=== PATIENT | female | born 1950 | race Caucasian/White ===

== ENCOUNTER → 2017-03-25 | Outpatient (CLI) | payer MEDICARE, OTHER ==
[~2017-03-25] MED LIST: AMOX500C PO; DRIS50002 PO; HYDR1OI TOP; IBUP200C10 PO
--- NOTE | 2017-03-25 09:21 | REPMRS ---
Patient History The patient states she had a clinical breast exam in 2016. Patient is postmenopausal. Family history of breast cancer in sister at age 67, endometrial cancer in mother at age 60, and breast cancer in maternal grandmother at age 75. Digital Mammo Screening Bilat: March 25, 2017 - Exam #: [id number] Bilateral CC and MLO view(s) were taken. Technologist: Ame Woods, Technologist Prior study comparison: March 05, 2016, bilateral digital mammo screening bilat performed at [facility]. March 05, 2015, bilateral digital mammo screening bilat performed at [facility]. FINDINGS: There are scattered fibroglandular densities. There has been no change in the appearance of the mammogram from the prior studies. There is a mild amount of residual fibroglandular tissue which is fairly symmetric. There is no interval development of dominant mass, architectural distortion, or clustered microcalcification suggestive of malignancy. ASSESSMENT: BI-RADS/ACR category 1 mammogram. Negative. Recommendation Routine screening mammogram in 1 year (for women over age 40). This mammogram was interpreted with the aid of an FDA-approved computer-aided dectection system. Electronically Signed By: Avery Garcia MD 03/25/17 [id number]
== END ==
LOC: M RAD 07:59
PROVIDERS: ATTEND Family Medicine
DX: Z12.31 Encounter for screening mammogram for malignant neoplasm of breast (principal)

== ENCOUNTER → 2018-03-28 | Outpatient (CLI) | payer MEDICARE, OTHER | LOC: M RAD 09:24 | DX: Z12.31 Encounter for screening mammogram for malignant neoplasm of breast (principal) | CPT/HCPCS: 77067 ==

== ENCOUNTER → 2018-03-30 | Outpatient (REF) | payer MEDICARE, OTHER ==
[2018-03-30 17:29] LABS: PLATELET COUNT, AUTOMATED 213 10^3/uL (150-450)
[2018-03-30 17:39] LABS: INR 0.95; PROTHROMBIN TIME 12.8 SECONDS (12.1-14.4)
[2018-03-30 17:40] LABS: PARTIAL THROMBOPLASTIN TIME 28.3 SECONDS (25.4-37.6)
== END ==
LOC: M LAB REF 16:43
DX: R91.1 Solitary pulmonary nodule (principal)
CPT/HCPCS: 85049

== ENCOUNTER → 2018-04-08 | Outpatient (CLI) | payer MEDICARE, OTHER | LOC: M RAD 13:24 | DX: R91.1 Solitary pulmonary nodule (principal) | CPT/HCPCS: 71250 ==

== ENCOUNTER 2018-04-19 05:56 | Day surgery (SDC) | payer MEDICARE, OTHER ==
[2018-04-19] MEDS ORDERED: LIDOCAINE 1% MDV 20ML VIAL SQ (06:00)
[2018-04-19] MEDS ORDERED: LR 1,000 ML IV ×2 (07:00→09:45)
[2018-04-19] MEDS ORDERED: PROPOFOL 200 MG/20 ML VIAL As Ordered (07:10)
[2018-04-19] MEDS ORDERED: LIDOCAINE 2% INJ 100 MG/5 ML SDV (FOR ANES.) As Ordered (07:10)
[2018-04-19] MEDS ORDERED: ROCURONIUM BROMIDE 50 MG/5 ML VIAL As Ordered (07:10)
[2018-04-19] MEDS ORDERED: fentaNYL 100 MCG/2 ML INJECTION (J3010) As Ordered ×2 (07:11→07:51)
[2018-04-19] MEDS ORDERED: MIDAZOLAM INJ 2 MG/2 ML VIAL (J2250) As Ordered (07:11)
[2018-04-19] MEDS: LIDOCAINE VISCOUS 2% SOLN 15ML UDC As Ordered (07:13)
[2018-04-19] MEDS: LIDOCAINE 1% SDV INJ 30 ML VIAL As Ordered (07:13)
[2018-04-19] MEDS: LIDOCAINE 4% TOPICAL SOLN 50 ML BTL As Ordered (07:13)
[2018-04-19] MEDS: THROMBIN SOLN 20,000 UNITS KIT As Ordered (07:13)
[2018-04-19] MEDS: EPINEPHrine 1MG/10ML SYRINGE 1.5IN As Ordered (07:16)
[2018-04-19] MEDS: CETACAINE SPRAY 5GM As Ordered (07:47)
[2018-04-19] MEDS ORDERED: ESMOLOL INJ 100MG/10ML VIAL As Ordered (07:49)
[2018-04-19] MEDS ORDERED: dexameTHASONE 4 MG/ML 1ML VIAL (J1100) As Ordered ×2 (07:50)
[2018-04-19] MEDS ORDERED: ONDANSETRON 4MG/2ML VIAL (J2405) As Ordered (07:50)
[2018-04-19] MEDS ORDERED: GLYCOPYRROLATE INJ 0.2 MG/ML 2 ML VIAL As Ordered (08:10)
[2018-04-19] MEDS ORDERED: NEOSTIGMINE 10 MG/10 ML VIAL (J2710) As Ordered (08:10)
[2018-04-19] MEDS ORDERED: fentaNYL 100 MCG/2 ML INJECTION (J3010) IV (09:45)
[2018-04-19] MEDS ORDERED: ONDANSETRON 4MG/2ML VIAL (J2405) IV (09:45)
[2018-04-19] MEDS ORDERED: MEPERIDINE INJ 25 MG/ML VIAL (J2175) IV (09:45)
[2018-04-19] MEDS ORDERED: PERCOCET 5MG/325MG TAB PO (09:45)
[2018-04-19] MEDS: METOCLOPRAMIDE INJ 10MG/2ML VIAL (J2765) IV (09:56)
== END 2018-04-19 12:14 | disposition home or self-care (01) ==
LOC: M SDC 05:56
DX: R91.1 Solitary pulmonary nodule (principal); M35.00 Sjogren syndrome, unspecified; E78.00 Pure hypercholesterolemia, unspecified; F41.9 Anxiety disorder, unspecified; M15.0 Primary generalized (osteo)arthritis; K21.9 Gastro-esophageal reflux disease without esophagitis; Z88.5 Allergy status to narcotic agent; Z88.8 Allergy status to other drugs, medicaments and biological substances; Z79.899 Other long term (current) drug therapy; Z98.51 Tubal ligation status; Z96.652 Presence of left artificial knee joint
CPT/HCPCS: 31623

== ENCOUNTER → 2018-04-26 | Outpatient (CLI) | payer MEDICARE, OTHER ==
[~2018-04-26] MED LIST changes: -AMOX500C PO; -DRIS50002 PO; -HYDR1OI TOP; -IBUP200C10 PO; +LIDOCAINE 1% MDV 20ML VIAL As Ordered; +PERCOCET 5MG/325MG TAB As Ordered
== END ==
LOC: M RADPRO 11:37
DX: R91.1 Solitary pulmonary nodule (principal)
CPT/HCPCS: 32405

== ENCOUNTER → 2018-08-05 | Outpatient (CLI) | payer MEDICARE, OTHER ==
[~2018-08-05] MED LIST changes: +AMOX500C PO; +CALC500T36 PO; +DRIS50003 PO; +ESTR62CR PV; +HYDR1OI TOP; +IBUP200C25 PO; -LIDOCAINE 1% MDV 20ML VIAL As Ordered; +LORA0.5T11 PO; -PERCOCET 5MG/325MG TAB As Ordered; +ZANTTAB PO
--- NOTE | 2018-08-05 10:27 | REP ---
Clinical: Follow-up pulmonary nodule. Technique: Axial noncontrast images from the thoracic inlet to the upper abdomen with coronal and sagittal re-formations. Comparison: 04/08/2018. Findings: The spiculated mass in the right lower lobe remains essentially stable and again measures approximately 1.7 cm maximal diameter. The bilateral lung braswell are otherwise well aerated and without further acute consolidation, nodule or mass lesion identified. No pleural effusion. No pneumothorax. Moderate bronchiectasis and minimal scattered scarring noted. No obvious adenopathy. Mediastinum demonstrates no mild atherosclerotic changes to the thoracic aorta and coronary arteries without aortic aneurysm, cardiomegaly or pericardial effusion. Small hiatal hernia identified at the gastroesophageal junction. Surrounding musculoskeletal structures are intact. Impression: 1. Stable spiculated mass in the right lower lobe measuring 1.7 cm. 2. No further mediastinal or pleuroparenchymal process appreciated. 3. Small hiatal hernia. Electronically Signed by Villa Vernon MD 08/05/2018 10:19 A
== END ==
LOC: M RAD 09:06
PROVIDERS: ATTEND Internal Medicine Pulmonary Disease
DX: R91.8 Other nonspecific abnormal finding of lung field (principal); K44.9 Diaphragmatic hernia without obstruction or gangrene

== ENCOUNTER → 2018-12-19 | Outpatient (CLI) | payer MEDICARE, OTHER ==
[~2018-12-19] MED LIST changes: -CALC500T36 PO; +CALC500T61 PO; -HYDR1OI TOP; +HYDR1OIN2 TOP; -LORA0.5T11 PO; +LORA0.5T5 PO; +ZANT150T40 PO; -ZANTTAB PO
--- NOTE | 2018-12-19 11:36 | REP ---
CT of the chest without IV contrast: Comparisons are 03/23/2018 and 08/05/2018. The the patient has a known spiculated mass in the right lower lobe. This mass is again identified today and measures up to 1.9 cm and is not significantly changed. There is a 3 mm nodule anteriorly in the right upper lobe on image 45, also unchanged. There are no other lung nodules or masses. There are no infiltrates or effusions. There is no mediastinal or axillary lymph node enlargement. The study is insensitive for hilar lymph node enlargement in the absence of IV contrast. The thoracic aorta is unremarkable. Cardiac size is normal. The upper abdomen there is no adrenal mass. There is a cyst posteriorly in the right lobe of the liver, unchanged. Impression: The patient's known right lower lobe spiculated mass is unchanged in size. There is a tiny 3 mm nodule anteriorly in the right upper lobe, unchanged. Right hepatic lobe cyst is unchanged. Electronically Signed by Avery Caldwell MD 12/19/2018 11:27 A
== END ==
LOC: M RAD 09:22
PROVIDERS: ATTEND Internal Medicine Pulmonary Disease
DX: R91.1 Solitary pulmonary nodule (principal)

== ENCOUNTER → 2019-03-30 | Outpatient (CLI) | payer MEDICARE, OTHER ==
[~2019-03-30] MED LIST changes: +LORA0.5T11 PO; -LORA0.5T5 PO
--- NOTE | 2019-03-30 13:24 | REPMRS ---
Patient History The patient states she had a clinical breast exam in 2018. Family history of breast cancer at age 67 in sister, breast cancer at age 75 in maternal grandmother, endometrial cancer at age 60 in mother. 3D TOMOSYNTHESIS WAS PERFORMED. The [place] lifetime risk for breast cancer is 10.7%. Digital Mammo Screening Bilat: March 30, 2019 - Exam #: [id number] Bilateral CC and MLO view(s) were taken. Technologist: Ofelia Barney, Technologist Prior study comparison: March 28, 2018, bilateral digital mammo screening bilat performed at [facility]. March 25, 2017, bilateral digital mammo screening bilat performed at [facility]. FINDINGS: There are scattered fibroglandular densities. There has been no change in the appearance of the mammogram from the prior studies. There is a mild amount of residual fibroglandular tissue which is fairly symmetric. There is no interval development of dominant mass, architectural distortion, or clustered microcalcification suggestive of malignancy. Assessment: BI-RADS/ACR category 1 mammogram. Negative Mammogram. Recommendation Routine screening mammogram in 1 year (for women over age 40). This mammogram was interpreted with the aid of an FDA-approved computer-aided dectection system. Electronically Signed By: Avery Garcia MD 03/30/19 [id number]
== END ==
LOC: M RAD 11:43
PROVIDERS: ATTEND Family Medicine
DX: Z12.31 Encounter for screening mammogram for malignant neoplasm of breast (principal); Z80.3 Family history of malignant neoplasm of breast; Z80.49 Family history of malignant neoplasm of other genital organs

== ENCOUNTER → 2019-04-21 | Outpatient (CLI) | payer MEDICARE, OTHER ==
--- NOTE | 2019-04-21 12:45 | REP ---
CT chest without contrast: History: Solitary pulmonary nodule. Comparison CT study December 19, 2018, August 05, 2018, and April 08, 2018. Findings: There has been no change in the size or appearance of the tiny 2-3 mm nodule in the right upper lobe. The patient's spiculated right lower lobe nodule is again seen, 14 mm in greatest diameter. This is seen along a band of linear fibrosis. It is unchanged from 08 April 2018. No new pulmonary nodule is appreciated. There is some vascular calcification along the course of the left coronary artery. A small sliding-type hiatal hernia is noted. No hilar or mediastinal mass or adenopathy is apparent on this noncontrast study. No adrenal lesion is seen. There is a small cyst in the liver. Impression: The patient's known right lower lobe spiculated nodule is unchanged. Electronically Signed by Mik Campos MD 04/21/2019 06:29 P
== END ==
LOC: M RAD 08:27
PROVIDERS: ATTEND Internal Medicine Pulmonary Disease
DX: R91.1 Solitary pulmonary nodule (principal); K44.9 Diaphragmatic hernia without obstruction or gangrene; I25.10 Atherosclerotic heart disease of native coronary artery without angina pectoris

== ENCOUNTER → 2019-05-02 | Outpatient (REF) | LOC: M LAB LCGH 10:13 | PROVIDERS: ATTEND Nurse Practitioner Family | DX: C44.329 Squamous cell carcinoma of skin of other parts of face (principal) ==

== ENCOUNTER → 2019-11-24 | Outpatient (CLI) | payer MEDICARE, OTHER ==
[~2019-11-24] MED LIST changes: -LORA0.5T11 PO; +LORA0.5T5 PO
--- NOTE | 2019-11-24 12:13 | REP ---
REASON: Followup nodule. All priors were reviewed, the latest 04/21/2019 showed a stable spiculated nodule in the right lower lobe. The mediastinum and pulmonary hilum are unchanged. No mass or adenopathy has developed. There is no change in the appearance of the imaged osseous upper abdomen or imaged osseous structures. Evaluation of the lung braswell shows no change in the appearance of the spiculated nodule in the right lower lobe. No new abnormal nodules, masses, or opacities have developed. IMPRESSION: Stable CT examination of the chest as described above. Electronically Signed by Benito Tracey DO 11/24/2019 01:46 P
== END ==
LOC: M RAD 10:33
PROVIDERS: ATTEND Internal Medicine Pulmonary Disease
DX: R91.1 Solitary pulmonary nodule (principal)

== ENCOUNTER → 2020-05-24 | Outpatient (CLI) | payer MEDICARE, OTHER ==
--- NOTE | 2020-05-25 09:35 | REP ---
INDICATION: SOLITARY PULMONARY NODULE COMPARISON: 03/23/2018 TECHNIQUE: Axial noncontrast images from the thoracic inlet to the upper abdomen with coronal and sagittal reformations. This CT examination was performed using the following dose reduction techniques: Automated exposure control, adjustment of mA and/or kv according to the patient's size, and use of iterative reconstruction technique. FINDINGS: The somewhat ill-defined nodular opacity in the medial right lower lobe with adjacent elements of linear scarring/fibrosis appears stable compared with 03/23/2018. Lung braswell demonstrate chronic age-related changes without further significant or acute process. No effusion. No pneumothorax. Tracheobronchial tree is patent. No significant adenopathy. The mediastinum demonstrates atherosclerotic changes to the thoracic aorta and coronary arteries without aortic aneurysm or cardiomegaly. No pericardial effusion. Small hiatal hernia at the gastroesophageal junction noted. Surrounding musculoskeletal structures are intact. Limited upper abdomen demonstrates normal bilateral adrenal glands and stable cyst in the posterior right hepatic lobe. IMPRESSION: 1. Stable nodular opacity in the medial right lower lobe unchanged compared with 03/23/2018. <Electronically signed by Villa Vernon > 05/25/20 0931
== END ==
LOC: M RAD 15:47
PROVIDERS: ATTEND Internal Medicine Pulmonary Disease
DX: R91.1 Solitary pulmonary nodule (principal)

== ENCOUNTER → 2021-09-01 | Outpatient (CLI) | payer MEDICARE, OTHER | LOC: M RAD 10:36 | PROVIDERS: ATTEND Internal Medicine Pulmonary Disease | DX: R91.1 Solitary pulmonary nodule (principal) ==

== ENCOUNTER → 2022-04-09 | Outpatient (REF) | payer MEDICARE, OTHER ==
[2022-04-09 17:31] LABS: C REACTIVE PROTEIN QUANTITATIV < 0.30 MG/DL (0.00-0.30); COMPLEMENT C3 132 MG/DL (90-180); COMPLEMENT C4 22 MG/DL (10-40); IMMUNOGLOBULIN G 1400 MG/DL (681-1648); IRON (FE) 39 UG/DL (50-170); MAGNESIUM LEVEL 2.5 MG/DL (1.8-2.4); TOTAL PROTEIN 8.2 GM/DL (6.4-8.2)
[2022-04-09 18:11] LABS: APPEARANCE, URINE MANUAL CLEAR (CLEAR); COLOR, URINE MANUAL COLORLESS (YELLOW)
[2022-04-09 18:12] LABS: BILIRUBIN, URINE MANUAL NEGATIVE (NEGATIVE); BLOOD URINE MANUAL NEGATIVE (NEGATIVE); GLUCOSE, URINE (UA) MANUAL NEGATIVE (NEGATIVE); KETONE, URINE MANUAL NEGATIVE (NEGATIVE); LEUKOCYTE ESTERASE, URINE MAN NEGATIVE (NEGATIVE); NITRITE, URINE MANUAL NEGATIVE (NEGATIVE); PROTEIN, URINE MANUAL NEGATIVE (NEGATIVE); SPECIFIC GRAVITY,URINE MANUAL 1.015 (1.002-1.035); UROBILINOGEN, URINE MANUAL NORMAL (NORMAL)
[2022-04-09 18:25] LABS: CREATININE,RANDOM URINE 53.6 MG/DL; TOTAL PROTEIN,RANDOM URINE < 5.0 MG/DL (0.0-12.0)
[2022-04-09 19:46] LABS: TOTAL 25(OH) VITAMIN D 32.3 NG/ML (30.0-100.0); VITAMIN B12 LEVEL 370 PG/ML (247-911)
[2022-04-10 13:44] LABS: ALPHA-1-GLOBULIN % 4.1 % (2.9-4.9); ALPHA-2-GLOBULINS % 9.9 % (7.1-11.8); BETA-1-GLOBULINS % 6.6 % (4.7-7.2); BETA-2-GLOBULINS % 5.2 % (3.2-6.5); GAMMA GLOBULIN % 18.2 % (11.1-18.8)
[2022-04-10 13:45] LABS: ALBUMIN 4.59 GM/DL (3.29-5.55); ALPHA-1-GLOBULINS 0.34 GM/DL (0.17-0.41); ALPHA-2-GLOBULINS 0.81 GM/DL (0.42-0.99); BETA-1-GLOBULINS 0.54 GM/DL (0.28-0.60); BETA-2-GLOBULINS 0.43 GM/DL (0.19-0.55); GAMMA GLOBULINS 1.49 GM/DL (0.65-1.58)
[2022-04-15 10:29] LABS: PTT LUPUS TYPE ANTICOAG SCREEN 1.1 (0-1.2)
== END ==
LOC: M SFHCRHEU 14:34
PROVIDERS: ATTEND Internal Medicine
DX: M79.10 Myalgia, unspecified site (principal); M35.01 Sjogren syndrome with keratoconjunctivitis; R76.8 Other specified abnormal immunological findings in serum

== ENCOUNTER → 2022-09-25 | Outpatient (CLI) | payer MEDICARE, OTHER | LOC: M SLEEP HO 11:24 | PROVIDERS: ATTEND Internal Medicine | DX: G47.33 Obstructive sleep apnea (adult) (pediatric) (principal); R53.82 Chronic fatigue, unspecified ==

== ENCOUNTER → 2023-01-12 | Outpatient (REF) | payer MEDICARE, OTHER ==
[2023-01-12 17:33] LABS: MAGNESIUM LEVEL 2.3 MG/DL (1.8-2.4)
[2023-01-12 17:36] LABS: TOTAL 25(OH) VITAMIN D 41.6 NG/ML (20.0-100.0)
== END ==
LOC: M SFHCRHEU 11:29
PROVIDERS: ATTEND Internal Medicine
DX: E83.41 Hypermagnesemia (principal); R53.82 Chronic fatigue, unspecified; Z79.899 Other long term (current) drug therapy

== ENCOUNTER → 2023-02-15 | Outpatient (CLI) | payer MEDICARE, OTHER | LOC: M CARPUL 08:26 | PROVIDERS: ATTEND Internal Medicine | DX: R06.02 Shortness of breath (principal); R93.1 Abnormal findings on diagnostic imaging of heart and coronary circulation ==

== ENCOUNTER → 2023-11-05 | Outpatient (CLI) | payer MEDICARE, OTHER | LOC: M PLAIMG 10:22 | PROVIDERS: ATTEND Internal Medicine Pulmonary Disease | DX: R06.02 Shortness of breath (principal); J47.9 Bronchiectasis, uncomplicated; J84.10 Pulmonary fibrosis, unspecified; I25.10 Atherosclerotic heart disease of native coronary artery without angina pectoris; I70.0 Atherosclerosis of aorta; I31.39 Other pericardial effusion (noninflammatory); K76.89 Other specified diseases of liver ==

== ENCOUNTER → 2023-11-16 | Outpatient (CLI) | payer MEDICARE, OTHER ==
[~2023-11-16] MED LIST changes: +METHACHOLINE KIT (6 VIAL.NEB PREMIX) INH ONE
== END ==
LOC: M CARPUL 07:38
PROVIDERS: ATTEND Internal Medicine Pulmonary Disease
DX: R06.02 Shortness of breath (principal)
CPT/HCPCS: 94070; 95070; J7674

== ENCOUNTER 2024-10-26 10:57 | Day surgery (SDC) | payer MEDICARE, OTHER ==
[~2024-10-26] VITALS: Ht 162.6 cm; Wt 82.5 kg
[~2024-10-26 10:57] MED LIST changes: +ALBU8.5H; +ATIV1TAB10 PO; +BREO1INH; +IRON65TA2 PO; -METHACHOLINE KIT (6 VIAL.NEB PREMIX) INH ONE; +OMEP-173 PO; +VIAC1CHW PO; +VITA100093 PO
[2024-10-26 13:32] VITALS: TEMP 96.8
[2024-10-26] MEDS ORDERED: propofoL 200 MG/20 ML VIAL As Ordered ONE (13:33)
[2024-10-26 14:02] VITALS: BP 136/74; O2SAT 97
== END 2024-10-26 14:03 | disposition home or self-care (01) ==
LOC: M OPP 10:57
PROVIDERS: ATTEND Internal Medicine Gastroenterology
DX: Z12.11 Encounter for screening for malignant neoplasm of colon (principal); Z80.0 Family history of malignant neoplasm of digestive organs; D12.3 Benign neoplasm of transverse colon; K64.8 Other hemorrhoids; K64.4 Residual hemorrhoidal skin tags; K21.9 Gastro-esophageal reflux disease without esophagitis; M35.00 Sjogren syndrome, unspecified; J45.909 Unspecified asthma, uncomplicated; Z79.899 Other long term (current) drug therapy; Z79.51 Long term (current) use of inhaled steroids; Z88.5 Allergy status to narcotic agent; Z88.8 Allergy status to other drugs, medicaments and biological substances; Z90.89 Acquired absence of other organs; K22.2 Esophageal obstruction